=== PATIENT | male | born 1980 | race Caucasian/White ===

== ENCOUNTER 2024-06-26 09:51 | Inpatient (IN) | payer SELFPAY ==
[2024-06-26] MEDS ORDERED: Sodium Chloride 0.9% 10 ML Syringe FLUSH PRN (10:54)
[2024-06-26] MEDS ORDERED: Sodium Chloride 0.9% 2.5 ML Syringe FLUSH PRN (10:54)
[2024-06-26] MEDS: Sodium Chloride 0.9% 1,000 ML IV ONE (11:05)
[2024-06-26] MEDS: Ondansetron 4 MG/2 ML SDV IVPUSH ONE (11:06)
[2024-06-26] MEDS: Morphine 4 MG/ML Syringe IVPUSH ONE ×2 (11:06→12:56)
[2024-06-26 11:16] LABS: HEMATOCRIT 37.3 % (42.0-52.0); HEMOGLOBIN 13.3 g/dL (14.0-18.0); MEAN CORPUSCULAR HEMOGLOBIN 31.8 pg (28.0-32.0); MEAN CORPUSCULAR HGB CONC 35.7 g/dL (32.0-36.0); MEAN CORPUSCULAR VOLUME 89.2 fL (83.0-99.0); MEAN PLATELET VOLUME 9.6 fL (9.4-12.4); PLATELET COUNT,PLT 137 K/uL (150-400); RED BLOOD CELL COUNT 4.18 M/uL (4.52-5.90); WHITE BLOOD CELL COUNT,WBC 19.11 K/uL (3.9-11.3)
[2024-06-26] MEDS: Piperacillin/Tazobactam 4.5 GM in Sodium Chloride 0.9% 100 ML IV ONE (11:31)
[2024-06-26] MEDS: Iopamidol 755 MG/ML 500 ML Multipack Bottle IVPUSH STA (11:45)
[2024-06-26 11:46] LABS: BASOPHILS PERCENT MAN 0 % (0-1); EOSINOPHILS ABSOLUTE MAN 0.19 K/uL (0.00-0.45); EOSINOPHILS PERCENT MAN 1 % (0-6); LYMPHOCYTES ABSOLUTE MAN 2.48 K/uL (1.00-4.80); LYMPHOCYTES PERCENT MAN 13 % (24-44); MONOCYTES ABSOLUTE MAN 1.91 K/uL (0.00-0.80); MONOCYTES PERCENT MAN 10 % (0-8); SEG NEUTROPHILS ABSOLUTE MAN 14.52 K/uL (1.80-7.70); SEG NEUTROPHILS PERCENT MAN 76 % (41-71)
[2024-06-26] MEDS: VANCOmycin 1.5 GM in Sodium Chloride 0.9% 250 ML IV ONE (11:58)
[2024-06-26 12:04] LABS: A/G RATIO 0.8 (0.9-1.6); ALBUMIN 3.8 g/dL (3.4-5.0); BILIRUBIN TOTAL 1.5 mg/dL (0.2-1.0); CALCIUM 8.9 mg/dL (8.5-10.1); CARBON DIOXIDE,CO2 21.2 mmol/L (21.0-32.0); CREATININE 1.2 mg/dL (0.8-1.3); EST CRCL DRUG DOSING (CG) 87.19 mL/min; PROTEIN TOTAL,TP 8.5 g/dL (6.4-8.2)
[2024-06-26 12:06] LABS: LACTIC ACID 0.9 mmol/L (0.4-2.0)
[2024-06-26] MEDS: Ketorolac 30 MG/ML SDV IVPUSH ONE (12:54)
[2024-06-26] MEDS: Acetaminophen 500 MG Tab PO ONE (12:54)
[2024-06-26] MEDS ORDERED: LORazepam 2 MG/ML SDV IVPUSH PRN (13:32)
[2024-06-26] MEDS ORDERED: Ondansetron 4 MG Tab.DIS PO PRN (13:32)
[2024-06-26] MEDS ORDERED: Sodium Chloride 0.9% 1,000 ML IV SCH (13:45)
[2024-06-26 14:41] LABS: CALCIUM 7.9 mg/dL (8.5-10.1); CARBON DIOXIDE,CO2 20.6 mmol/L (21.0-32.0); CREATININE 1.1 mg/dL (0.8-1.3); EST CRCL DRUG DOSING (CG) 95.12 mL/min; POTASSIUM,K 2.8 mmol/L (3.5-5.1)
[2024-06-26] MEDS: cefTRIAXone 1 GM in Sodium Chloride 0.9% 50 ML IV SCH (14:43)
[2024-06-26] MEDS: Potassium Chloride 20 MEQ Tab.ER PO ONE ×2 (14:45→22:06)
[2024-06-26] MEDS: Thiamine 100 MG Tab PO ONE (14:45)
[2024-06-26] MEDS: Magnesium Sulf/Wat 2 GM/50 mL 2 GM in Premix Bag 1 BAG IV ONE (14:46)
[2024-06-26] MEDS: Enoxaparin 40 MG/0.4 ML Syringe SUBCUT SCH (14:46)
[2024-06-26] MEDS: Nicotine 14 MG/24 Hr Patch TRDERM SCH (15:13)
[2024-06-26] MEDS: Sodium Chloride 0.9% 1,000 ML IV SCH (15:14)
[2024-06-26] MEDS: Acetaminophen 325 MG Tab PO PRN (17:30)
[2024-06-26 20:41] LABS: CARBON DIOXIDE,CO2 20.9 mmol/L (21.0-32.0); CREATININE 1.2 mg/dL (0.8-1.3); EST CRCL DRUG DOSING (CG) 87.19 mL/min; POTASSIUM,K 3.3 mmol/L (3.5-5.1)
[2024-06-26] MEDS: oxyCODONE 5 MG Tab PO PRN (22:04)
[2024-06-26] MEDS: Folic Acid 1 MG Tab PO SCH (22:05)
[2024-06-27] MEDS: VANCOmycin 1 GM in Sodium Chloride 0.9% 250 ML IV SCH ×2 (01:58→11:55)
[2024-06-27] MEDS: Ibuprofen 200 MG Tab PO PRN (02:34)
[2024-06-27 05:59] LABS: HEMATOCRIT 31.4 % (42.0-52.0); HEMOGLOBIN 10.8 g/dL (14.0-18.0); MEAN CORPUSCULAR HEMOGLOBIN 31.4 pg (28.0-32.0); MEAN CORPUSCULAR HGB CONC 34.4 g/dL (32.0-36.0); MEAN CORPUSCULAR VOLUME 91.3 fL (83.0-99.0); MEAN PLATELET VOLUME 9.6 fL (9.4-12.4); PLATELET COUNT,PLT 108 K/uL (150-400); RED BLOOD CELL COUNT 3.44 M/uL (4.52-5.90); WHITE BLOOD CELL COUNT,WBC 13.42 K/uL (3.9-11.3)
[2024-06-27 06:21] LABS: A/G RATIO 0.7 (0.9-1.6); ALBUMIN 2.6 g/dL (3.4-5.0); BILIRUBIN TOTAL 0.6 mg/dL (0.2-1.0); CALCIUM 7.8 mg/dL (8.5-10.1); CARBON DIOXIDE,CO2 21.2 mmol/L (21.0-32.0); CREATININE 0.9 mg/dL (0.8-1.3); EST CRCL DRUG DOSING (CG) 116.25 mL/min; MAGNESIUM 2.1 mg/dL (1.8-2.4); POTASSIUM,K 3.4 mmol/L (3.5-5.1); PROTEIN TOTAL,TP 6.4 g/dL (6.4-8.2)
[2024-06-27 06:29] LABS: LYMPHOCYTES ABSOLUTE MAN 1.34 K/uL (1.00-4.80); LYMPHOCYTES PERCENT MAN 10 % (24-44); MONOCYTES ABSOLUTE MAN 1.34 K/uL (0.00-0.80); MONOCYTES PERCENT MAN 10 % (0-8); SEG NEUTROPHILS ABSOLUTE MAN 10.74 K/uL (1.80-7.70); SEG NEUTROPHILS PERCENT MAN 80 % (41-71)
[2024-06-27] MEDS: Potassium Chloride 20 MEQ Tab.ER PO ONE (09:47)
[2024-06-27] MEDS: Diphtheria,Pertussis(Acell),Tetanus Vaccine 0.5 ML Syringe IM ONE (10:47)
[2024-06-27] MEDS: Cefepime 2 GM in Sodium Chloride 0.9% 50 ML IV SCH (11:54)
[2024-06-27] MEDS ORDERED: Naloxone 0.4 MG/ML SDV IVPUSH PRN (17:36)
[2024-06-27] MEDS: oxyCODONE 5 MG Tab PO PRN (22:06)
[2024-06-28] MEDS: Ibuprofen 200 MG Tab PO PRN (00:16)
[2024-06-28 07:18] LABS: HEMATOCRIT 33.4 % (42.0-52.0); HEMOGLOBIN 11.6 g/dL (14.0-18.0); MEAN CORPUSCULAR HEMOGLOBIN 32.3 pg (28.0-32.0); MEAN CORPUSCULAR HGB CONC 34.7 g/dL (32.0-36.0); MEAN PLATELET VOLUME 9.1 fL (9.4-12.4); PLATELET COUNT,PLT 134 K/uL (150-400); RED BLOOD CELL COUNT 3.59 M/uL (4.52-5.90); WHITE BLOOD CELL COUNT,WBC 13.37 K/uL (3.9-11.3)
[2024-06-28 07:33] LABS: A/G RATIO 0.6 (0.9-1.6); ALBUMIN 2.6 g/dL (3.4-5.0); BILIRUBIN TOTAL 0.5 mg/dL (0.2-1.0); CALCIUM 8.2 mg/dL (8.5-10.1); CARBON DIOXIDE,CO2 26.8 mmol/L (21.0-32.0); CREATININE 0.9 mg/dL (0.8-1.3); EST CRCL DRUG DOSING (CG) 116.25 mL/min; MAGNESIUM 1.8 mg/dL (1.8-2.4); POTASSIUM,K 3.6 mmol/L (3.5-5.1); PROTEIN TOTAL,TP 6.7 g/dL (6.4-8.2)
[2024-06-28 07:45] LABS: EOSINOPHILS PERCENT MAN 3 % (0-6); LYMPHOCYTES ABSOLUTE MAN 4.41 K/uL (1.00-4.80); LYMPHOCYTES PERCENT MAN 33 % (24-44); MONOCYTES ABSOLUTE MAN 0.94 K/uL (0.00-0.80); MONOCYTES PERCENT MAN 7 % (0-8); SEG NEUTROPHILS ABSOLUTE MAN 7.62 K/uL (1.80-7.70); SEG NEUTROPHILS PERCENT MAN 57 % (41-71)
[2024-06-28] MEDS: Morphine 2 MG/ML SYRINGE IVPUSH PRN (09:31)
[2024-06-29 06:03] LABS: HEMATOCRIT 33.5 % (42.0-52.0); HEMOGLOBIN 11.6 g/dL (14.0-18.0); MEAN CORPUSCULAR HEMOGLOBIN 32.4 pg (28.0-32.0); MEAN CORPUSCULAR HGB CONC 34.6 g/dL (32.0-36.0); MEAN CORPUSCULAR VOLUME 93.6 fL (83.0-99.0); MEAN PLATELET VOLUME 9.9 fL (9.4-12.4); PLATELET COUNT,PLT 172 K/uL (150-400); RED BLOOD CELL COUNT 3.58 M/uL (4.52-5.90); WHITE BLOOD CELL COUNT,WBC 13.19 K/uL (3.9-11.3)
[2024-06-29 06:39] LABS: A/G RATIO 0.6 (0.9-1.6); ALBUMIN 2.6 g/dL (3.4-5.0); BILIRUBIN TOTAL 0.5 mg/dL (0.2-1.0); CALCIUM 8.6 mg/dL (8.5-10.1); CREATININE 0.8 mg/dL (0.8-1.3); EST CRCL DRUG DOSING (CG) 130.79 mL/min; MAGNESIUM 1.7 mg/dL (1.8-2.4); POTASSIUM,K 3.9 mmol/L (3.5-5.1)
[2024-06-29 06:48] LABS: BASOPHILS ABSOLUTE MAN 0.13 K/uL (0.00-0.20); BASOPHILS PERCENT MAN 1 % (0-1); EOSINOPHILS ABSOLUTE MAN 0.79 K/uL (0.00-0.45); EOSINOPHILS PERCENT MAN 6 % (0-6); LYMPHOCYTES ABSOLUTE MAN 1.85 K/uL (1.00-4.80); LYMPHOCYTES PERCENT MAN 14 % (24-44); MONOCYTES ABSOLUTE MAN 1.45 K/uL (0.00-0.80); MONOCYTES PERCENT MAN 11 % (0-8); SEG NEUTROPHILS ABSOLUTE MAN 8.97 K/uL (1.80-7.70); SEG NEUTROPHILS PERCENT MAN 68 % (41-71)
[2024-06-29] MEDS ORDERED: Ibuprofen 400 MG Tab PO PRN (09:54)
[2024-06-29] MEDS ORDERED: Magnesium Sulfate/Water 2 GM/50 ML Premix Bag IV ONE (11:10)
[2024-06-29] MEDS: Magnesium Sulf/Wat 2 GM/50 mL 2 GM in Premix Bag 1 BAG IV ONE (12:52)
[2024-06-30 05:59] LABS: HEMATOCRIT 34.6 % (42.0-52.0); HEMOGLOBIN 11.8 g/dL (14.0-18.0); MEAN CORPUSCULAR HGB CONC 34.1 g/dL (32.0-36.0); MEAN CORPUSCULAR VOLUME 93.8 fL (83.0-99.0); MEAN PLATELET VOLUME 9.4 fL (9.4-12.4); PLATELET COUNT,PLT 254 K/uL (150-400); RED BLOOD CELL COUNT 3.69 M/uL (4.52-5.90); WHITE BLOOD CELL COUNT,WBC 11.85 K/uL (3.9-11.3)
[2024-06-30 06:14] LABS: EOSINOPHILS ABSOLUTE MAN 0.83 K/uL (0.00-0.45); EOSINOPHILS PERCENT MAN 7 % (0-6); LYMPHOCYTES ABSOLUTE MAN 3.44 K/uL (1.00-4.80); LYMPHOCYTES PERCENT MAN 29 % (24-44); MONOCYTES ABSOLUTE MAN 1.19 K/uL (0.00-0.80); MONOCYTES PERCENT MAN 10 % (0-8); SEG NEUTROPHILS PERCENT MAN 54 % (41-71)
[2024-06-30 06:21] LABS: CALCIUM 8.7 mg/dL (8.5-10.1); CARBON DIOXIDE,CO2 26.1 mmol/L (21.0-32.0); CREATININE 0.8 mg/dL (0.8-1.3); EST CRCL DRUG DOSING (CG) 130.79 mL/min; POTASSIUM,K 4.7 mmol/L (3.5-5.1)
[2024-06-30] MEDS: Magnesium Sulf/Wat 2 GM/50 mL 2 GM in Premix Bag 1 BAG IV ONE (09:54)
[2024-06-30] MEDS: VANCOmycin 1.25 GM in Sodium Chloride 0.9% 250 ML IV SCH (11:54)
[2024-07-01 06:34] LABS: HEMATOCRIT 36.9 % (42.0-52.0); HEMOGLOBIN 12.4 g/dL (14.0-18.0); MEAN CORPUSCULAR HEMOGLOBIN 31.6 pg (28.0-32.0); MEAN CORPUSCULAR HGB CONC 33.6 g/dL (32.0-36.0); MEAN CORPUSCULAR VOLUME 94.1 fL (83.0-99.0); MEAN PLATELET VOLUME 9.6 fL (9.4-12.4); PLATELET COUNT,PLT 325 K/uL (150-400); RED BLOOD CELL COUNT 3.92 M/uL (4.52-5.90); WHITE BLOOD CELL COUNT,WBC 10.85 K/uL (3.9-11.3)
[2024-07-01 06:58] LABS: CALCIUM 8.8 mg/dL (8.5-10.1); CARBON DIOXIDE,CO2 27.4 mmol/L (21.0-32.0); CREATININE 0.8 mg/dL (0.8-1.3); EST CRCL DRUG DOSING (CG) 130.79 mL/min; MAGNESIUM 1.7 mg/dL (1.8-2.4); POTASSIUM,K 4.8 mmol/L (3.5-5.1)
[2024-07-01 06:59] LABS: EOSINOPHILS ABSOLUTE MAN 0.43 K/uL (0.00-0.45); EOSINOPHILS PERCENT MAN 4 % (0-6); LYMPHOCYTES ABSOLUTE MAN 1.41 K/uL (1.00-4.80); LYMPHOCYTES PERCENT MAN 13 % (24-44)
[2024-07-01 07:00] LABS: MONOCYTES ABSOLUTE MAN 1.52 K/uL (0.00-0.80); MONOCYTES PERCENT MAN 14 % (0-8); SEG NEUTROPHILS ABSOLUTE MAN 7.49 K/uL (1.80-7.70); SEG NEUTROPHILS PERCENT MAN 69 % (41-71)
[2024-07-01] MEDS: Magnesium Sulf/Wat 2 GM/50 mL 2 GM in Premix Bag 1 BAG IV ONE (18:33)
[2024-07-02 06:27] LABS: BASOPHILS ABSOLUTE AUTO 0.08 K/uL (0.00-0.20); BASOPHILS PERCENT AUTO 0.7 % (0.0-1.0); EOSINOPHILS ABSOLUTE AUTO 0.66 K/uL (0.00-0.45); HEMOGLOBIN 13.5 g/dL (14.0-18.0); IMMATURE GRAN ABSOLUTE AUTO 0.41 K/uL (0.00-0.05); IMMATURE GRAN PERCENT AUTO 3.7 % (0.0-0.4); LYMPHOCYTES ABSOLUTE AUTO 1.75 K/uL (1.00-4.80); LYMPHOCYTES PERCENT AUTO 15.9 % (24.0-44.0); MEAN CORPUSCULAR HEMOGLOBIN 31.3 pg (28.0-32.0); MEAN CORPUSCULAR HGB CONC 32.9 g/dL (32.0-36.0); MEAN CORPUSCULAR VOLUME 95.1 fL (83.0-99.0); MEAN PLATELET VOLUME 9.1 fL (9.4-12.4); MONOCYTES ABSOLUTE AUTO 1.42 K/uL (0.00-0.80); MONOCYTES PERCENT AUTO 12.9 % (0.0-8.0); NEUTROPHILS ABSOLUTE AUTO 6.72 K/uL (1.80-7.70); NEUTROPHILS PERCENT AUTO 60.8 % (41.0-71.0); PLATELET COUNT,PLT 452 K/uL (150-400); RED BLOOD CELL COUNT 4.31 M/uL (4.52-5.90); WHITE BLOOD CELL COUNT,WBC 11.04 K/uL (3.9-11.3)
[2024-07-02 06:49] LABS: CALCIUM 9.6 mg/dL (8.5-10.1); CARBON DIOXIDE,CO2 27.6 mmol/L (21.0-32.0); CREATININE 0.9 mg/dL (0.8-1.3); EST CRCL DRUG DOSING (CG) 116.25 mL/min; MAGNESIUM 2.2 mg/dL (1.8-2.4); POTASSIUM,K 4.7 mmol/L (3.5-5.1)
== END 2024-07-02 11:03 | disposition home or self-care (01) | DRG 603 ==
LOC: MW.ED 09:51 → MW.MS 13:52
PROVIDERS: ADMIT Internal Medicine; ATTEND Internal Medicine
PROC: 3E0234Z Introduction of Serum, Toxoid and Vaccine into Muscle, Percutaneous Approach (ICD-10-PCS; principal; 2024-06-27)
DX: L03.112 Cellulitis of left axilla (principal); E87.1 Hypo-osmolality and hyponatremia; R65.10 Systemic inflammatory response syndrome (SIRS) of non-infectious origin without acute organ dysfunction; H54.7 Unspecified visual loss; F17.210 Nicotine dependence, cigarettes, uncomplicated; F10.90 Alcohol use, unspecified, uncomplicated; Z98.890 Other specified postprocedural states; Z23 Encounter for immunization
CPT/HCPCS: 36415; 71260; 71260-26; 73130-26-LT; 73130-LT; 76882; 76882-26; 80048; 80053; 80202; 83605; 83735; 85025; 87040; 87103; 87641; 90715; 93005; 96365; 96367; 96375; 96376; 99222; 99232; 99239; 99284; 99285-25; 99463; A9270-GY; J0692; J0696; J1650; J1885; J2270; J2405; J2543; J3371; J3475; J7030; J7050; Q9967